=== PATIENT | female | born 1950 | race Caucasian/White ===

== ENCOUNTER 2020-03-19 13:23 | Emergency (ER) | payer MEDICARE, OTHER ==
[2020-03-19 14:02] VITALS: BP 161/69; PULSE 78
[2020-03-19] MEDS: Doxycycline 100 MG Cap PO ONE (14:17)
--- NOTE | 2020-03-19 14:45 | EDM.PDOC ---
ED HPI GENERAL MEDICAL PROBLEM - General Chief Complaint: Bite:Animal, Insect Stated Complaint: Tick Bite Time Seen by Provider: 03/19/20 14:10 Source of Information: Reports: Patient History Limitations: Reports: No Limitations - History of Present Illness INITIAL COMMENTS - FREE TEXT/NARRATIVE: Working outside in yard for several days and [facility]. Unsure of duration of exposure. NO history of Lyme Disease. Onset: Today Onset Date: 03/19/20 Onset Time: 14:45 Location: Reports: Upper Extremity, Left - Related Data Allergies Allergy/AdvReac Type Severity Reaction Status Date / Time No Known Allergies Allergy Verified 03/19/20 14:17 Social & Family History - Tobacco Use Smoking Status *Q: Never Smoker Second Hand Smoke Exposure: No - Recreational Drug Use Recreational Drug Use: No ED ROS GENERAL - Review of Systems Review Of Systems: See Below Constitutional: Denies: Fever, Chills Respiratory: Reports: No Symptoms GI/Abdominal: Reports: No Symptoms ED EXAM, ANIMAL BITE - Physical Exam Exam: See Below Exam Limited By: No Limitations General Appearance: Alert, No Apparent Distress Skin Exam: Normal Color, Warm/Dry, Other (tICK OVER POSTERIOR MID UPPER ARM) ED ANIMAL BITE PROCEDURES - Additional/Other Procedure(s) Other (Free Text) Procedure(s): Patient's tick removd and mouth parts removed with clamp an 18 guage needle to tease out mouth parts+ Course - Vital Signs Last Recorded V/S: Last Vital Signs Temp 97.8 F 03/19/20 13:59 Pulse 78 03/19/20 13:59 Resp 20 03/19/20 13:59 BP 161/69 H 03/19/20 13:59 Pulse Ox 98 03/19/20 13:59 - Orders/Labs/Meds Meds: Medications Discontinued Medications Generic Name Dose Route Start Last Admin Trade Name Freq PRN Reason Stop Dose Admin Doxycycline Hyclate 200 mg 03/19/20 14:16 03/19/20 14:17 Vibramycin PO 03/19/20 14:17 200 mg ONETIME ONE Administration Departure - Departure Time of Disposition: 14:25 Disposition: Home, Self-Care 01 Condition: Good Clinical Impression: Tick bite Qualifiers: Encounter type: initial encounter Qualified Code(s): W57.XXXA - Bitten or stung by nonvenomous insect and other nonvenomous arthropods, initial encounter - Discharge Information *PRESCRIPTION DRUG MONITORING PROGRAM REVIEWED*: Not Applicable Instructions: Tick Bite Information, Adult, [id number], Doxycycline tablets or capsules, Lyme Disease Referrals: Kalli Null RN [Primary Care Provider] - Forms: ED Department Discharge Additional Instructions: Discharge home. Follow up with primary provider as needed. Monitor for signs of infection. Return for signs of Lymes Disease such as rash or fever Sepsis Event Note - Evaluation Sepsis Screening Result: No Definite Risk - Focused Exam Date Exam was Performed: 03/20/20 Time Exam was Performed: 08:42
== END 2020-03-19 14:25 | disposition home or self-care (01) ==
LOC: LB.ED 13:23
DX: S40.862A Insect bite (nonvenomous) of left upper arm, initial encounter (principal); W57.XXXA Bitten or stung by nonvenomous insect and other nonvenomous arthropods, initial encounter
CPT/HCPCS: 99282; 99283; A9270-GY

== ENCOUNTER 2021-12-06 17:23 | Emergency (ER) | payer MEDICARE, OTHER | END 2021-12-06 18:59 | disposition home or self-care (01) | LOC: LB.ED 17:23 | DX: R07.89 Other chest pain (principal); E78.00 Pure hypercholesterolemia, unspecified; I10 Essential (primary) hypertension | CPT/HCPCS: 36415; 71045; 80048; 84484; 85025; 93005; 99285-25 ==

== ENCOUNTER 2025-06-30 00:44 | Emergency (ER) | payer MEDICARE, OTHER ==
[2025-06-30] MEDS ORDERED: Sodium Chloride 0.9% 10 ML Syringe FLUSH PRN (00:49)
[2025-06-30] MEDS: Labetalol 100 MG/20 ML MDV IVPUSH ONE ×2 (01:28→07:57)
[2025-06-30 01:39] LABS: BASOPHILS ABSOLUTE AUTO 0.03 K/uL (0.02-0.10); BASOPHILS PERCENT AUTO 0.4 % (0.0-0.5); EOSINOPHILS ABSOLUTE AUTO 0.11 K/uL (0.04-0.40); EOSINOPHILS PERCENT AUTO 1.3 % (1.0-5.0); LYMPHOCYTES ABSOLUTE AUTO 3.85 K/uL (1.50-4.00); LYMPHOCYTES PERCENT AUTO 46.9 % (20.0-40.0); MEAN PLATELET VOLUME 9.4 fL (6.0-10.0); MONOCYTES ABSOLUTE AUTO 0.62 K/uL (0.20-0.80); MONOCYTES PERCENT AUTO 7.6 % (3.0-10.0); NEUTROPHILS ABSOLUTE AUTO 3.60 K/uL (2.00-7.50); NEUTROPHILS PERCENT AUTO 43.8 % (45.0-70.0); PLATELET COUNT,PLT 226 K/uL (150-500); RED BLOOD CELL COUNT 4.41 M/uL (3.80-5.80); RED CELL DISTRIBUTION WIDTH 12.5 % (11.0-16.0); WHITE BLOOD CELL COUNT,WBC 8.2 K/uL (4.0-11.0)
[2025-06-30 01:55] LABS: A/G RATIO 1.1 (0.8-2.0); ALANINE AMINOTRANSFERASE,ALT 44.0 U/L (12-78); ASPARTATE AMNIOTRANSFERASE,AST 40.0 U/L (15-37); BILIRUBIN TOTAL 0.3 mg/dL (0.0-1.0); BLOOD UREA NITROGEN,BUN 12.0 mg/dL (8-26); CARBON DIOXIDE,CO2 29.2 mmol/L (21.0-32.0); CHLORIDE,CL 103.0 mmol/L (98-107); CREATININE 1.19 mg/dL (0.55-1.02); EST CRCL DRUG DOSING (CG) 40.0 mL/min; ESTIMATED GFR 49.0 mL/min (>60); GLUCOSE RANDOM 130.0 mg/dL (74-100); POTASSIUM,K 3.9 mmol/L (3.5-5.1); PROTEIN TOTAL,TP 7.7 g/dL (6.4-8.2); SODIUM,NA 142.0 mmol/L (136-145); TROPONIN I HIGH SENSITIVITY 6.0 pg/ml (<=60.4)
[2025-06-30 02:00] LABS: APPEARANCE,URINE CLEAR (CLEAR); GLUCOSE,URINE NEGATIVE (NEGATIVE); OCCULT BLOOD,URINE NEGATIVE (NEGATIVE)
[2025-06-30 07:50] VITALS: PULSE 62
[2025-06-30 09:43] VITALS: BP 160/80
== END 2025-06-30 09:10 | disposition home or self-care (01) ==
LOC: LB.ED 00:44
DX: R07.2 Precordial pain (principal); I10 Essential (primary) hypertension; E78.00 Pure hypercholesterolemia, unspecified; E11.9 Type 2 diabetes mellitus without complications; Z79.899 Other long term (current) drug therapy
CPT/HCPCS: 36415; 71046; 80053; 81003; 84484; 85025; 93005; 93010; 96374; 96376; 99283; 99285-25; A9270-GY; J1920